=== PATIENT | female | born 1940 | race African-American/Black ===

== ENCOUNTER 2023-03-01 02:53 | Inpatient (IN) | payer OTHER ==
[~2023-03-01] VITALS: Ht 165.1 cm; Wt 70.4 kg
[2023-03-01] MEDS ORDERED: ADENOSINE 3 MG/ML 2ML VIAL IV ONE (03:15)
[2023-03-01] MEDS ORDERED: DILTIAZEM HCL 5MG/ML 5ML VIAL IV ONE ×2 (03:15→03:30)
[2023-03-01] MEDS ORDERED: SODIUM CHLORIDE 0.9% 1,000 ML IV ONE (03:15)
[2023-03-01] MEDS ORDERED: ONDANSETRON HCL 4MG/2ML INJ IV ONE (03:30)
[2023-03-01] MEDS ORDERED: DILTIAZEM HCL 5MG/ML 5ML VIAL IV NR (03:30)
[2023-03-01] MEDS ORDERED: MORPHINE SULFATE 4 MG/ML CPJ (NOT FOR IM USE) IV ONE (03:30)
[2023-03-01] MEDS ORDERED: AMIODARONE HCL 150 MG in DEXT 5% WATER 100 ML IV ONE (04:15)
[2023-03-01 05:06] LABS: BASOPHILS % 0.7 % (0.0-2.0); EOSINOPHILS % 0.7 % (0.0-5.0); HEMATOCRIT. 33.2 % (36.0-48.0); HEMOGLOBIN. 10.9 g/dL (12.0-16.0); LYMPHOCYTES % 25.6 % (20.0-50.0); MEAN CORPUSCULAR HEMOGLOBIN 29.8 pg (28.0-32.0); MEAN CORPUSCULAR VOLUME 91.2 fL (81.0-99.0); MEAN PLATELET VOLUME 8.9 fl (7.4-10.4); MONOCYTES % 7.3 % (2.0-8.0); NEUTROPHILS % 65.7 % (40.0-76.0); PLATELET 258 x1000/uL (130-400); RED BLOOD CELL COUNT 3.65 mill/uL (4.2-5.4); RED CELL DISTRIBUTION WIDTH 13.7 % (11.6-14.6)
[2023-03-01] MEDS ORDERED: DILTIAZEM HCL 60MG TABLET PO ONE (05:15)
[2023-03-01 05:41] LABS: CHLORIDE 115 mEq/L (98-107)
[2023-03-01 05:46] LABS: D-DIMER 0.44 mg/L FEU (<0.50); INR 1.1; PARTIAL THROMBOPLASTIN TIME 25.1 sec (23.4-31.0); PROTHROMBIN TIME 12.1 sec (9.6-11.0)
[2023-03-01 05:51] LABS: ETHANOL BLOOD < 10 mg/dL (-10); PHOSPHORUS 1.7 mg/dL (2.5-4.9)
[2023-03-01] MEDS ORDERED: KCL 20MEQ/100ML PREMIX 100 ML IV NR (06:00)
[2023-03-01] MEDS ORDERED: POTASSIUM CHLORIDE 20MEQ/PACKET PO NR (06:00)
[2023-03-01] MEDS ORDERED: ASPIRIN 325MG EC TABLET PO NR (06:00)
[2023-03-01] MEDS ORDERED: MAGNESIUM 2 G PREMIX 50 ML IV NR ×2 (06:15→09:00)
[2023-03-01] MEDS ORDERED: SODIUM PHOS,M-BASIC-D-BASIC 20 MM in DEXT 5% WATER 243.3333 ML IV NR (07:00)
[2023-03-01 07:16] LABS: CLARITY URINE CLEAR (CLEAR); COLOR URINE YELLOW (YELLOW); KETONES URINE TRACE (NEGATIVE); LEUKOCYTE ESTERASE URINE NEGATIVE (NEGATIVE); NITRITE URINE NEGATIVE (NEGATIVE); OCCULT BLOOD URINE NEGATIVE (NEGATIVE); PH URINE 6.5 (4.5-8.0); PROTEIN URINE NEGATIVE (NEGATIVE); SPECIFIC GRAVITY URINE 1.009 (1.005-1.030); UROBILINOGEN URINE 0.2 E.U./dL (0.2-1.0)
[2023-03-01 07:37] LABS: *AMPHETAMINES SCREEN URINE NEGATIVE (NEGATIVE); *BARBITURATES SCREEN URINE NEGATIVE (NEGATIVE); *BENZODIAZEPINES SCREEN URINE NEGATIVE (NEGATIVE); *COCAINE SCREEN URINE NEGATIVE (NEGATIVE); CANNABINOID URINE SCREEN NEGATIVE (NEGATIVE); METHADONE URINE SCREEN NEGATIVE (NEGATIVE); OPIATES URINE SCREEN PRESUMTIVE POSITIVE (NEGATIVE); PHENCYCLIDINE URINE SCREEN NEGATIVE (NEGATIVE)
[2023-03-01] MEDS ORDERED: SODIUM CHLORIDE 0.9% 1000ML BAG (SEPSIS BOLUS) IV ONE (07:45)
[2023-03-01] MEDS ORDERED: ACETAMINOPHEN 325MG TABLET PO PRN ×2 (07:45)
[2023-03-01] MEDS ORDERED: DOCUSATE SODIUM 100MG CAPSULE PO PRN (07:45)
[2023-03-01] MEDS ORDERED: ZOLPIDEM TARTRATE 5MG TABLET PO PRN (07:45)
[2023-03-01] MEDS ORDERED: ONDANSETRON HCL 4MG/2ML INJ IV PRN (07:45)
[2023-03-01] MEDS ORDERED: CLONIDINE 0.1MG TABLET PO PRN (07:45)
[2023-03-01] MEDS ORDERED: GUAIFENESIN 200MG/10ML SUGAR FREE UDC PO PRN (07:45)
[2023-03-01] MEDS ORDERED: IPRATROPIUM/ALBUTEROL 0.5-3(2.5)MG/3ML NEB NEB PRN (07:45)
[2023-03-01] MEDS ORDERED: NITROGLYCERIN 0.4MG TABLET SL SL PRN (07:45)
[2023-03-01] MEDS ORDERED: KETOROLAC 15MG/ML VIAL IV PRN (07:45)
[2023-03-01] MEDS ORDERED: MAGNESIUM/ALUMINUM HYDROXIDE/SIMETHICONE 30ML UDC PO PRN (07:45)
[2023-03-01] MEDS ORDERED: AMIODARONE HCL 200 MG TABLET PO SCH (08:00)
[2023-03-01] MEDS: ZINC SULFATE 220 MG ( 50 ) CAPSULE PO SCH (09:00)
[2023-03-01] MEDS: ASCORBIC ACID 500 MG TABLET PO SCH ×2 (09:00→21:16)
[2023-03-01] MEDS: FAMOTIDINE 20MG TABLET PO SCH (09:00)
[2023-03-01] MEDS ORDERED: ENOXAPARIN 60MG/0.6ML SYR SUBCUT NR (09:15)
[2023-03-01] MEDS ORDERED: ENOXAPARIN 60MG/0.6ML SYR SUBCUT SCH (09:30)
[2023-03-01] MEDS ORDERED: POTASSIUM PHOS,M-BASIC-D-BASIC 30 MMOL in DEXT 5% WATER 500 ML IV ONE (10:00)
[2023-03-01 11:34] LABS: T4 FREE 0.93 ng/dL (0.76-1.46)
[2023-03-01 11:50] LABS: VITAMIN B12 SERUM 1433 pg/mL (211-911)
[2023-03-01] MEDS ORDERED: DILTIAZEM HCL 60MG TABLET PO SCH (12:00)
[2023-03-01 12:11] LABS: FOLIC ACID (FOLATE) SERUM > 20.00 ng/mL (>5.38)
[2023-03-01 16:45] LABS: CREATINE KINASE MB FRACTION 11.1 ng/mL (0.5-3.6)
[2023-03-01 17:48] VITALS: BP 134/58; PULSE 61; RESP 13; TEMP 98.7
[2023-03-01 17:59] VITALS: BP 134/58; PULSE 61; RESP 13; TEMP 98.7
[2023-03-01 20:00] VITALS: BP 103/58; PULSE 60; RESP 16; TEMP 98.1
[2023-03-01] MEDS: ENOXAPARIN 60MG/0.6ML SYR SUBCUT SCH (21:00)
[2023-03-01] MEDS ORDERED: APIXABAN 5 MG TABLET PO SCH (21:00)
[2023-03-01] MEDS: METOPROLOL TARTRATE 25MG TABLET PO SCH (21:00)
[2023-03-01] MEDS ORDERED: POTASSIUM PHOS,M-BASIC-D-BASIC 30 MMOL in DEXT 5% WATER 500 ML IV NR (22:00)
[2023-03-02] VITALS: BP 117/77; PULSE 66; RESP 18; TEMP 98.4
[2023-03-02 04:00] VITALS: BP 128/59; PULSE 54; RESP 16; TEMP 98.2
[2023-03-02 05:32] LABS: CHLORIDE 116 mEq/L (98-107)
[2023-03-02 05:46] LABS: PHOSPHORUS 4.7 mg/dL (2.5-4.9)
[2023-03-02 06:21] LABS: BASOPHILS % 0.6 % (0.0-2.0); EOSINOPHILS % 1.1 % (0.0-5.0); HEMATOCRIT. 33.2 % (36.0-48.0); LYMPHOCYTES % 26.7 % (20.0-50.0); MEAN CORPUSCULAR HEMOGLOBIN 30.1 pg (28.0-32.0); MEAN CORPUSCULAR VOLUME 90.6 fL (81.0-99.0); MEAN PLATELET VOLUME 9.2 fl (7.4-10.4); MONOCYTES % 10.7 % (2.0-8.0); NEUTROPHILS % 60.9 % (40.0-76.0); PLATELET 272 x1000/uL (130-400); RED BLOOD CELL COUNT 3.66 mill/uL (4.2-5.4); RED CELL DISTRIBUTION WIDTH 14.1 % (11.6-14.6)
[2023-03-02 08:00] VITALS: BP 142/58; PULSE 58; RESP 17; TEMP 97.3
[2023-03-02] MEDS: ZINC SULFATE 220 MG ( 50 ) CAPSULE PO SCH (08:00)
[2023-03-02] MEDS: ASCORBIC ACID 500 MG TABLET PO SCH (08:00)
[2023-03-02] MEDS: FAMOTIDINE 20MG TABLET PO SCH (08:00)
[2023-03-02] MEDS: METOPROLOL TARTRATE 25MG TABLET PO SCH (08:00)
[2023-03-02] MEDS: ENOXAPARIN 60MG/0.6ML SYR SUBCUT SCH (08:05)
[2023-03-02] MEDS ORDERED: ASPIRIN 325MG EC TABLET PO SCH (09:00)
[2023-03-02 12:00] VITALS: BP 156/74; PULSE 57; RESP 12; TEMP 98.1
[2023-03-02 16:07] VITALS: BP 136/63; PULSE 55; RESP 14; TEMP 98
[2023-03-02 16:12] VITALS: BP 136/63; PULSE 55; TEMP 98; O2SAT 99
== END 2023-03-02 17:23 | disposition short-term general hospital (02) | DRG 281 ==
LOC: ER 02:53 → 3WST 07:30
PROVIDERS: ADMIT Internal Medicine; ATTEND Internal Medicine
DX: I21.4 Non-ST elevation (NSTEMI) myocardial infarction (principal); E46 Unspecified protein-calorie malnutrition; I48.91 Unspecified atrial fibrillation; E87.6 Hypokalemia; E83.42 Hypomagnesemia; E83.39 Other disorders of phosphorus metabolism; Z20.822 Contact with and (suspected) exposure to COVID-19; D64.9 Anemia, unspecified; E83.51 Hypocalcemia; Z68.25 Body mass index [BMI] 25.0-25.9, adult
CPT/HCPCS: 36415; 71045; 80053; 80061; 80305; 80320; 81003; 82550; 82553; 82607; 82746; 83036; 83540; 83550; 83605; 83735; 83880; 84100; 84145; 84439; 84443; 84484; 85025; 85379; 86850; 86900; 87426; 93005; 93306; 93970; 99291; C9803; J0282; J1650; J2270; J2405; J3475; J3480; J3490; J7030; J7060; G0480

== ENCOUNTER 2024-09-04 06:05 | Emergency (ER) | payer OTHER ==
[~2024-09-04] VITALS: Ht 162.6 cm; Wt 55.0 kg
[2024-09-04 06:06] VITALS: O2SAT 100
[2024-09-04] MEDS ORDERED: MORPHINE SULFATE 4 MG/ML INJ (FOR IV/IM USE) IV STA (06:20)
[2024-09-04] MEDS: DILTIAZEM HCL 5MG/ML 5ML VIAL IV ONE (06:45)
[2024-09-04 07:02] LABS: CHLORIDE 107 mEq/L (98-107); POTASSIUM 4.2 mEq/L (3.5-5.1); SODIUM 142 mEq/L (136-145)
[2024-09-04 07:03] LABS: CARBON DIOXIDE 22 mEq/L (21-32)
[2024-09-04 07:04] LABS: CALCIUM 9.8 mg/dL (8.7-10.4)
[2024-09-04 07:06] LABS: BASOPHILS % 0.9 % (0.0-2.0); EOSINOPHILS % 1.2 % (0.0-5.0); HEMATOCRIT. 40.2 % (36.0-48.0); HEMOGLOBIN. 13.2 g/dL (12.0-16.0); LYMPHOCYTES % 62.4 % (20.0-50.0); MEAN CORPUSCULAR HEMOGLOBIN 30.6 pg (28.0-32.0); MEAN CORPUSCULAR HGB CONC 32.9 g/dL (31.0-37.0); MEAN CORPUSCULAR VOLUME 92.9 fL (81.0-99.0); MEAN PLATELET VOLUME 9.2 fl (7.4-10.4); MONOCYTES % 9.7 % (2.0-8.0); NEUTROPHILS % 25.8 % (40.0-76.0); PLATELET 313 x1000/uL (130-400); RED BLOOD CELL COUNT 4.33 mill/uL (4.2-5.4); RED CELL DISTRIBUTION WIDTH 14.4 % (11.6-14.6); WHITE BLOOD COUNT 6.3 x1000/uL (4.5-11.0)
[2024-09-04 07:08] LABS: CREATININE 0.9 mg/dL (0.6-1.0); GLUCOSE 156 mg/dL (70-105); UREA NITROGEN BLOOD 12 mg/dL (9-23)
[2024-09-04 07:09] LABS: TROPONIN I HIGH SENSITIVITY 12 ng/L (3.0-34)
[2024-09-04] MEDS: DILTIAZEM HCL 60MG TABLET PO ONE (07:56)
[2024-09-04] MEDS: KETOROLAC 30MG/ML VIAL IV ONE (07:57)
[2024-09-04 10:19] VITALS: BP 97/44; PULSE 55; RESP 15; TEMP 36.89184; O2SAT 100
== END 2024-09-04 11:23 | disposition short-term general hospital (02) ==
LOC: ER 06:05 → EDBEDREQTM 06:56 → ER 11:23
DX: I48.91 Unspecified atrial fibrillation (principal)
CPT/HCPCS: 99285; 96374; 71045; 96375; 80048; 83880; 85025; 84484; 36415; 93005; J3490; J1885